=== PATIENT | female | born 1990 | race Caucasian/White ===

== ENCOUNTER 2017-05-31 11:58 | Emergency (ER) | payer OTHER, BC ==
[~2017-05-31] VITALS: Ht 162.6 cm; Wt 65.8 kg
[~2017-05-31 11:58] MED LIST: DOXYCYCLINE HY100 MG PO; IBUPROFEN200 MG PO; NORCO 5-325 TA1 EACH PO
[2017-05-31] MEDS ORDERED: KETOROLAC TROME10 MG PO (14:51)
== END 2017-05-31 14:57 | disposition home or self-care (01) ==
LOC: ED 11:58
DX: S50.02XA Contusion of left elbow, initial encounter (principal); F17.200 Nicotine dependence, unspecified, uncomplicated; W23.0XXA Caught, crushed, jammed, or pinched between moving objects, initial encounter; Y92.89 Other specified places as the place of occurrence of the external cause; Y99.0 Civilian activity done for income or pay
CPT/HCPCS: 73080; 73110; 99283

== ENCOUNTER 2021-12-20 04:16 | Emergency (ER) | payer OTHER ==
[~2021-12-20] VITALS: Ht 162.6 cm; Wt 92.0 kg
[~2021-12-20 04:16] MED LIST changes: +KETOROLAC TROME10 MG PO
--- NOTE | 2021-12-20 12:28 | EKG ---
[facility] [address] [place], [place] [address] Signed Sinus tachycardia Otherwise normal ECG No previous ECGs available Confirmed by KATELIN WALLACE MD [id number] on 12/20/2021 12:28:07 PM Electronically Signed By: KATELIN WALLACE MD 12/20/21 1228 PATIENT NAME: ROQUE CHRISTIAN Electrocardiogram DATE OF : 86 PHYSICIAN: KATELIN WALLACE MD REPORT #: [id number] REPORT IS CONFIDENTIAL AND NOT TO BE RELEASED WITHOUT AUTHORIZATION
== END 2021-12-20 06:27 | disposition home or self-care (01) ==
LOC: ED 04:16
DX: F10.129 Alcohol abuse with intoxication, unspecified (principal); S01.511A Laceration without foreign body of lip, initial encounter; Y90.8 Blood alcohol level of 240 mg/100 ml or more; W01.10XA Fall on same level from slipping, tripping and stumbling with subsequent striking against unspecified object, initial encounter; D64.9 Anemia, unspecified; F17.200 Nicotine dependence, unspecified, uncomplicated
CPT/HCPCS: 12011; 36415; 70450; 70486; 72125; 80053; 85025; 90715; 93005; 93010; 99284-25; G0480

== ENCOUNTER 2024-02-28 12:23 | Emergency (ER) | payer BC, OTHER ==
[~2024-02-28] VITALS: Ht 162.6 cm; Wt 94.8 kg
[2024-02-28] MEDS ORDERED: KETOROLAC TROMETHAMINE 30 MG/ML VIAL IM ONE (13:15)
[2024-02-28] MEDS ORDERED: HYDROmorphone HCL 1 MG/ML SYR IM ONE (13:15)
[2024-02-28] MEDS ORDERED: PERCOCET 5-3251 EACH PO (14:57)
[2024-02-28] MEDS ORDERED: METHYLPREDNISOLO4 M1 PO (14:57)
[2024-02-28 15:09] VITALS: BP 138/87
== END 2024-02-28 15:15 | disposition home or self-care (01) ==
LOC: ED 12:23
DX: M25.551 Pain in right hip (principal); S73.101A Unspecified sprain of right hip, initial encounter; F17.200 Nicotine dependence, unspecified, uncomplicated; W17.89XA Other fall from one level to another, initial encounter
CPT/HCPCS: 36415; 73502; 84703; 96372; 99283; J1171; J1885